=== PATIENT | female | born 1995 | race African-American/Black ===

== ENCOUNTER 2020-10-04 22:25 | Emergency (ER) | payer OTHER ==
[~2020-10-04] VITALS: Ht 157.5 cm; Wt 127.0 kg
[~2020-10-04 22:25] MED LIST: ACCUNEB SO1.25 MG/1; ALBUTEROL INHAL17 GM IH; ALBUTEROL2.5 MG/0.1 IH; CLARITIN10 MG; MEDROLDOSEPACK PO; PREDNISONE 20 M20 MG PO; PROVENTIL; SINGULAIR 10 MG10 M1; SYMBICORT160 MCG/4.
[2020-10-04] MEDS ORDERED: ESTARYLLA1 EACH PO (22:38)
[2020-10-04] MEDS ORDERED: PHENTERMINE H37.5 M1 PO (22:38)
[2020-10-05] MEDS ORDERED: CEPHALEXIN500 MG PO (00:52)
[2020-10-05] MEDS ORDERED: NORCO7.5 PO (00:52)
[2020-10-05 01:41] VITALS: BP 146/77
== END 2020-10-05 01:10 | disposition home or self-care (01) ==
LOC: ER 22:25
DX: S51.012A Laceration without foreign body of left elbow, initial encounter (principal); M23.91 Unspecified internal derangement of right knee; J45.909 Unspecified asthma, uncomplicated; Z79.899 Other long term (current) drug therapy; V87.8XXA Person injured in other specified noncollision transport accidents involving motor vehicle (traffic), initial encounter; Y93.I9 Activity, other involving external motion; Y92.488 Other paved roadways as the place of occurrence of the external cause; Y99.8 Other external cause status